=== PATIENT | male | born 1940 | race Caucasian/White ===

== ENCOUNTER → 2017-11-16 | Outpatient (REF) | payer MEDICARE | LOC: M SMT 17:31 | DX: R97.20 Elevated prostate specific antigen [PSA] (principal); Z79.84 Long term (current) use of oral hypoglycemic drugs; Z79.899 Other long term (current) drug therapy | CPT/HCPCS: 87086 ==

== ENCOUNTER → 2018-02-14 | Outpatient (CLI) | payer MEDICARE | LOC: M RAD 07:42 | DX: I65.23 Occlusion and stenosis of bilateral carotid arteries (principal) | CPT/HCPCS: 93880 ==

== ENCOUNTER → 2019-03-21 | Outpatient (CLI) | payer MEDICARE ==
--- NOTE | 2019-03-21 15:54 | REP ---
Duplex carotid sonography: History: Occlusion and stenosis of bilateral carotid arteries. Comparison study: February 14, 2018. Findings: Antegrade flow is observed in both vertebral arteries today. Right carotid: There is mixed plaquing in the bulb and distal CCA. The right internal carotid artery is again noted to be occluded. Velocity chart right carotid: PSV EDV Right CCA 34.0 cm/s Right ICA 0 0 Right ECA 71.0 Right ICA/CCA ratio 0. Left carotid: Left common carotid artery shows mild diffuse intimal thickening and soft plaquing. There is mixed plaquing in the bulb circumferentially and in the proximal ICA. Color flow and spectral Doppler interrogation are unremarkable. Velocities have not increased on the left in the interval since the prior study. Velocity chart left carotid: PSV EDV Left CCA 69.0 cm/s Left ICA 83.0 77.0 Left ECA 24.0 Left ICA/CCA ratio normal 1.2. Impression: 16-49% category narrowing in the left ICA. Velocities have not increased in the left ICA since the prior study. Occlusion of the right ICA again noted as previously observed. Bilateral cystic thyroid lesions are noted. A left thyroid nodule is noted. Electronically Signed by Joshua Cabrera MD 03/21/2019 03:59 P
== END ==
LOC: M RAD 14:13
PROVIDERS: ATTEND Surgery Vascular Surgery
DX: I65.23 Occlusion and stenosis of bilateral carotid arteries (principal)